=== PATIENT | female | born 1950 | race Two or more races ===

== ENCOUNTER 2016-12-23 11:45 | Emergency (ER) | payer OTHER ==
[~2016-12-23] VITALS: Ht 152.4 cm; Wt 67.6 kg
[2016-12-23 11:55] VITALS: BP 158/76
== END 2016-12-23 13:29 | disposition home or self-care (01) ==
LOC: ER 11:45
DX: S00.83XA Contusion of other part of head, initial encounter (principal); W22.8XXA Striking against or struck by other objects, initial encounter; Y93.89 Activity, other specified; Y99.0 Civilian activity done for income or pay; Y92.69 Other specified industrial and construction area as the place of occurrence of the external cause